=== PATIENT | male | born 1995 | race Caucasian/White ===

== ENCOUNTER 2022-03-19 11:37 | Inpatient (IN) | payer OTHER ==
[~2022-03-19] VITALS: Ht 177.8 cm; Wt 81.2 kg
[2022-03-19 15:50] VITALS: BP 119/66
[2022-03-19 16:45] VITALS: BP 119/66
[2022-03-19] MEDS: IBUPROFEN 600 MG TABLET PO SCH (18:00)
[2022-03-19] MEDS: OxyCODONE HCL 10 MG IR TABLET PO PRN (19:19)
[2022-03-19 21:00] VITALS: BP 118/66
[2022-03-19] MEDS: SENNA 187 MG TABLET PO SCH (21:00)
[2022-03-19] MEDS: DOCUSATE SODIUM 100 MG CAPSULE PO SCH (21:00)
[2022-03-19] MEDS: MELATONIN 5 MG TABLET PO PRN (21:14)
[2022-03-19] MEDS: ENOXAPARIN SODIUM 30 MG/0.3 ML PF SYRINGE SQ SCH (21:14)
[2022-03-19] MEDS: ETHYL ALCOHOL 62% ANTISEPTIC NASAL SANITIZER 0.6 ML AMPUL NASAL SCH (22:16)
[2022-03-20] MEDS: IBUPROFEN 600 MG TABLET PO SCH ×5 (00:12→23:51)
[2022-03-20 07:05] LABS: BASOPHILS % (AUTO) 0.3 % (0.0-2.0); EOSINOPHILS % (AUTO) 2.7 % (1.0-6.0); HEMATOCRIT 22.3 % (41-53); HEMOGLOBIN 7.7 g/dL (13.5-17.5); LYMPHOCYTES # (AUTO) 1.7 K/uL (1.0-4.8); LYMPHOCYTES % (AUTO) 18.7 % (22.0-44.0); MEAN CORPUSCULAR HEMOGLOBIN 29.8 pg (26.0-34.0); MEAN CORPUSCULAR HGB CONC 34.5 G/dL (31.0-37.0); MEAN CORPUSCULAR VOLUME 86 fL (80-100); MONOCYTES # (AUTO) 0.9 K/uL (0.1-1.0); NEUTROPHILS # (AUTO) 6.3 K/uL (1.8-7.7); NEUTROPHILS % (AUTO) 68.3 % (40.0-70.0); PLATELET COUNT (AUTO) 394 K/uL (150-450); RED BLOOD CELL COUNT(AUTO) 2.58 MIL/uL (4.50-5.90); RED CELL DISTRIBUTION WIDTH 14.7 % (11.5-14.5)
[2022-03-20 07:22] LABS: ALANINE AMINOTRANSFERASE 62 U/L (12-78); ALBUMIN 2.2 g/dL (3.4-5.0); ALKALINE PHOSPHATASE 80 U/L (46-116); ANION GAP 5 mmol/L (8-16); ASPARTATE AMINOTRANSFERASE 37 U/L (15-37); CARBON DIOXIDE 29 mmol/L (22-29); CHLORIDE 102 mmol/L (98-107); GLUCOSE,RANDOM 96 mg/dL (70-110); POTASSIUM 4.2 mmol/L (3.5-5.1); SODIUM SERUM 136 mmol/L (136-145); TOTAL PROTEIN, SERUM 6.1 g/dL (6.4-8.2); UREA NITROGEN, BLOOD 16 mg/dL (7-18)
[2022-03-20 07:23] LABS: GLOMERULAR FILTR. RATE CALC > 60 mL/min (>60)
[2022-03-20] MEDS: ENOXAPARIN SODIUM 30 MG/0.3 ML PF SYRINGE SQ SCH ×2 (08:31→20:24)
[2022-03-20 08:32] VITALS: BP 112/76
[2022-03-20] MEDS: OxyCODONE HCL 10 MG IR TABLET PO PRN ×2 (08:32→16:08)
[2022-03-20] MEDS: ETHYL ALCOHOL 62% ANTISEPTIC NASAL SANITIZER 0.6 ML AMPUL NASAL SCH ×2 (08:32→21:20)
[2022-03-20] MEDS: DOCUSATE SODIUM 100 MG CAPSULE PO SCH ×2 (08:35→21:00)
[2022-03-20] MEDS: MELATONIN 5 MG TABLET PO PRN (20:25)
[2022-03-20] MEDS: SENNA 187 MG TABLET PO SCH (21:00)
[2022-03-20 21:08] VITALS: BP 105/56
[2022-03-21] MEDS: IBUPROFEN 600 MG TABLET PO SCH ×3 (06:08→17:16)
[2022-03-21 06:54] LABS: BASOPHILS % (AUTO) 0.3 % (0.0-2.0); EOSINOPHILS % (AUTO) 3.4 % (1.0-6.0); HEMATOCRIT 23.4 % (41-53); HEMOGLOBIN 7.9 g/dL (13.5-17.5); LYMPHOCYTES # (AUTO) 1.7 K/uL (1.0-4.8); LYMPHOCYTES % (AUTO) 18.5 % (22.0-44.0); MEAN CORPUSCULAR HEMOGLOBIN 29.2 pg (26.0-34.0); MEAN CORPUSCULAR HGB CONC 33.7 G/dL (31.0-37.0); MEAN CORPUSCULAR VOLUME 87 fL (80-100); MONOCYTES # (AUTO) 0.9 K/uL (0.1-1.0); MONOCYTES % (AUTO) 10.1 % (2.0-9.0); NEUTROPHILS # (AUTO) 6.2 K/uL (1.8-7.7); NEUTROPHILS % (AUTO) 67.7 % (40.0-70.0); PLATELET COUNT (AUTO) 486 K/uL (150-450); RED CELL DISTRIBUTION WIDTH 14.4 % (11.5-14.5)
[2022-03-21 08:30] VITALS: BP 117/60
[2022-03-21] MEDS: OxyCODONE HCL 5 MG IR TABLET PO PRN (10:00)
[2022-03-21] MEDS: ENOXAPARIN SODIUM 30 MG/0.3 ML PF SYRINGE SQ SCH ×2 (10:00→20:48)
[2022-03-21] MEDS: DOCUSATE SODIUM 100 MG CAPSULE PO SCH ×2 (10:00→20:49)
[2022-03-21] MEDS: ETHYL ALCOHOL 62% ANTISEPTIC NASAL SANITIZER 0.6 ML AMPUL NASAL SCH ×2 (10:00→20:48)
[2022-03-21] MEDS: OxyCODONE HCL 10 MG IR TABLET PO PRN (15:20)
[2022-03-21] MEDS ORDERED: SODIUM CL IRRIG SOLN BOTTLE 250 ML IRRIG ONE (17:57)
[2022-03-21] MEDS: MELATONIN 5 MG TABLET PO PRN (20:48)
[2022-03-21] MEDS: SENNA 187 MG TABLET PO SCH (20:49)
[2022-03-21 23:13] VITALS: BP 125/69
[2022-03-22] MEDS: IBUPROFEN 600 MG TABLET PO SCH ×4 (00:07→17:29)
[2022-03-22 07:35] VITALS: BP 104/47
[2022-03-22] MEDS: DOCUSATE SODIUM 100 MG CAPSULE PO SCH (08:33)
[2022-03-22] MEDS: ETHYL ALCOHOL 62% ANTISEPTIC NASAL SANITIZER 0.6 ML AMPUL NASAL SCH ×2 (08:33→20:25)
[2022-03-22] MEDS: ENOXAPARIN SODIUM 30 MG/0.3 ML PF SYRINGE SQ SCH ×2 (08:33→20:26)
[2022-03-22] MEDS: OxyCODONE HCL 10 MG IR TABLET PO PRN ×2 (08:34→13:30)
[2022-03-22] MEDS: DOCUSATE SODIUM 250 MG CAPSULE PO SCH (20:26)
[2022-03-22] MEDS: SENNA 187 MG TABLET PO SCH (20:26)
[2022-03-22 20:33] VITALS: BP 129/72
[2022-03-22] MEDS: OxyCODONE HCL 5 MG IR TABLET PO PRN (22:06)
[2022-03-22] MEDS: MELATONIN 5 MG TABLET PO PRN (22:06)
[2022-03-23] MEDS: IBUPROFEN 600 MG TABLET PO SCH ×4 (06:01→18:18)
[2022-03-23 07:35] VITALS: BP 111/50
[2022-03-23] MEDS: DOCUSATE SODIUM 250 MG CAPSULE PO SCH ×2 (08:15→20:55)
[2022-03-23] MEDS: ENOXAPARIN SODIUM 30 MG/0.3 ML PF SYRINGE SQ SCH ×2 (08:15→20:56)
[2022-03-23] MEDS: ETHYL ALCOHOL 62% ANTISEPTIC NASAL SANITIZER 0.6 ML AMPUL NASAL SCH ×2 (08:15→20:55)
[2022-03-23] MEDS: MULTIVITAMINS WITH MINERALS, THERAPEUTIC TABLET PO SCH (08:15)
[2022-03-23] MEDS: OxyCODONE HCL 10 MG IR TABLET PO PRN ×2 (08:16→13:45)
[2022-03-23] MEDS: ACETAMINOPHEN 325 MG TABLET PO PRN (16:26)
[2022-03-23 20:00] VITALS: BP 110/54
[2022-03-23] MEDS: SENNA 187 MG TABLET PO SCH (21:00)
[2022-03-23] MEDS: MELATONIN 5 MG TABLET PO PRN (23:57)
[2022-03-24] MEDS: IBUPROFEN 600 MG TABLET PO SCH ×4 (06:17→18:42)
[2022-03-24] MEDS: OxyCODONE HCL 10 MG IR TABLET PO PRN ×2 (07:14→16:44)
[2022-03-24] MEDS: ETHYL ALCOHOL 62% ANTISEPTIC NASAL SANITIZER 0.6 ML AMPUL NASAL SCH ×2 (09:06→20:37)
[2022-03-24] MEDS: MULTIVITAMINS WITH MINERALS, THERAPEUTIC TABLET PO SCH (09:08)
[2022-03-24] MEDS: DOCUSATE SODIUM 250 MG CAPSULE PO SCH ×2 (09:08→20:37)
[2022-03-24] MEDS: ENOXAPARIN SODIUM 30 MG/0.3 ML PF SYRINGE SQ SCH ×2 (09:09→20:38)
[2022-03-24] MEDS: ACETAMINOPHEN 325 MG TABLET PO PRN (09:33)
[2022-03-24 20:30] VITALS: BP 125/56
[2022-03-24] MEDS: SENNA 187 MG TABLET PO SCH (20:37)
[2022-03-24] MEDS: MELATONIN 5 MG TABLET PO PRN (20:37)
[2022-03-24] MEDS: OxyCODONE HCL 5 MG IR TABLET PO PRN (20:38)
[2022-03-25 08:01] VITALS: BP 99/63
[2022-03-25] MEDS: ENOXAPARIN SODIUM 30 MG/0.3 ML PF SYRINGE SQ SCH ×2 (08:42→20:09)
[2022-03-25] MEDS: MULTIVITAMINS WITH MINERALS, THERAPEUTIC TABLET PO SCH (08:43)
[2022-03-25] MEDS: ETHYL ALCOHOL 62% ANTISEPTIC NASAL SANITIZER 0.6 ML AMPUL NASAL SCH ×2 (08:43→20:09)
[2022-03-25] MEDS: DOCUSATE SODIUM 250 MG CAPSULE PO SCH ×2 (08:43→20:08)
[2022-03-25] MEDS: OxyCODONE HCL 10 MG IR TABLET PO PRN ×2 (14:25→22:07)
[2022-03-25] MEDS: POLYETHYLENE GLYCOL 3350 17 GM PACKET PO SCH (14:25)
[2022-03-25 16:30] VITALS: BP 126/69
[2022-03-25] MEDS: ACETAMINOPHEN 325 MG TABLET PO PRN (16:47)
[2022-03-25 17:00] LABS: BASOPHILS % (AUTO) 0.5 % (0.0-2.0); EOSINOPHILS % (AUTO) 0.4 % (1.0-6.0); HEMATOCRIT 28.9 % (41-53); HEMOGLOBIN 9.6 g/dL (13.5-17.5); LYMPHOCYTES # (AUTO) 0.8 K/uL (1.0-4.8); LYMPHOCYTES % (AUTO) 14.4 % (22.0-44.0); MEAN CORPUSCULAR HEMOGLOBIN 28.7 pg (26.0-34.0); MEAN CORPUSCULAR HGB CONC 33.2 G/dL (31.0-37.0); MEAN CORPUSCULAR VOLUME 86 fL (80-100); MONOCYTES % (AUTO) 0.6 % (2.0-9.0); NEUTROPHILS # (AUTO) 4.7 K/uL (1.8-7.7); NEUTROPHILS % (AUTO) 84.1 % (40.0-70.0); PLATELET COUNT (AUTO) 707 K/uL (150-450); RED BLOOD CELL COUNT(AUTO) 3.34 MIL/uL (4.50-5.90); RED CELL DISTRIBUTION WIDTH 15.7 % (11.5-14.5)
[2022-03-25 17:11] LABS: ANION GAP 7 mmol/L (8-16); CALCIUM, TOTAL 9.5 mg/dL (8.8-10.5); CARBON DIOXIDE 30 mmol/L (22-29); CHLORIDE 99 mmol/L (98-107); CREATININE 0.81 mg/dL (0.60-1.30); GLOMERULAR FILTR. RATE CALC > 60 mL/min (>60); GLUCOSE,RANDOM 84 mg/dL (70-110); POTASSIUM 4.2 mmol/L (3.5-5.1); SODIUM SERUM 136 mmol/L (136-145); UREA NITROGEN, BLOOD 18 mg/dL (7-18)
[2022-03-25 20:00] VITALS: BP 95/60
[2022-03-25] MEDS: SENNA 187 MG TABLET PO SCH (20:08)
[2022-03-25 20:17] LABS: APPEARANCE,URINE CLEAR (CLEAR); BILIRUBIN,URINE NEGATIVE (NEGATIVE); GLUCOSE, URINE (UA) NEGATIVE (NEGATIVE); KETONES,URINE NEGATIVE (NEGATIVE); LEUKOCYTE ESTERASE ,URINE NEGATIVE (NEGATIVE); NITRATE,URINE NEGATIVE (NEGATIVE); OCCULT BLOOD,URINE NEGATIVE (NEGATIVE); PH,URINE 5.5 (5.0-8.0); PROTEIN,URINE NEGATIVE (NEGATIVE); SPECIFIC GRAVITIY, URINE 1.006 (1.003-1.030); UROBILINOGEN,URINE <=1.0 mg/dL (<=1.0)
[2022-03-25 20:20] LABS: BACTERIA,URINE None Seen /HPF (None Seen); RBC,URINE 0-2 /HPF (0-2); SQUAMOUS EPITHELIAL CELL,UR Rare /LPF (None Seen); WBC,URINE None Seen /HPF (0-5)
[2022-03-25] MEDS: MELATONIN 5 MG TABLET PO PRN (22:06)
[2022-03-26] MEDS: POLYETHYLENE GLYCOL 3350 17 GM PACKET PO SCH (08:40)
[2022-03-26] MEDS: DOCUSATE SODIUM 250 MG CAPSULE PO SCH ×2 (08:41→20:17)
[2022-03-26] MEDS: ETHYL ALCOHOL 62% ANTISEPTIC NASAL SANITIZER 0.6 ML AMPUL NASAL SCH ×2 (08:41→20:17)
[2022-03-26] MEDS: MULTIVITAMINS WITH MINERALS, THERAPEUTIC TABLET PO SCH (08:41)
[2022-03-26] MEDS: ENOXAPARIN SODIUM 30 MG/0.3 ML PF SYRINGE SQ SCH ×2 (08:41→20:17)
[2022-03-26 08:48] VITALS: BP 112/58
[2022-03-26] MEDS: ACETAMINOPHEN 325 MG TABLET PO PRN (08:48)
[2022-03-26] MEDS: OxyCODONE HCL 10 MG IR TABLET PO PRN ×2 (09:41→18:05)
[2022-03-26 20:00] VITALS: BP 106/54
[2022-03-26] MEDS: SENNA 187 MG TABLET PO SCH (20:17)
[2022-03-26] MEDS: MELATONIN 5 MG TABLET PO PRN (20:18)
[2022-03-27 05:10] VITALS: BP 111/64
[2022-03-27] MEDS: OxyCODONE HCL 10 MG IR TABLET PO PRN ×4 (05:10→20:15)
[2022-03-27 08:33] VITALS: BP 111/77
[2022-03-27] MEDS: ACETAMINOPHEN 325 MG TABLET PO PRN (08:33)
[2022-03-27] MEDS: ENOXAPARIN SODIUM 30 MG/0.3 ML PF SYRINGE SQ SCH ×2 (08:38→20:20)
[2022-03-27] MEDS: MULTIVITAMINS WITH MINERALS, THERAPEUTIC TABLET PO SCH (08:39)
[2022-03-27] MEDS: ETHYL ALCOHOL 62% ANTISEPTIC NASAL SANITIZER 0.6 ML AMPUL NASAL SCH ×2 (08:39→20:15)
[2022-03-27] MEDS: POLYETHYLENE GLYCOL 3350 17 GM PACKET PO SCH (08:39)
[2022-03-27] MEDS: DOCUSATE SODIUM 250 MG CAPSULE PO SCH ×2 (08:39→21:00)
[2022-03-27] MEDS: MELATONIN 5 MG TABLET PO PRN (20:14)
[2022-03-27 21:00] VITALS: BP 106/61
[2022-03-27] MEDS: SENNA 187 MG TABLET PO SCH (21:00)
[2022-03-28] MEDS: ACETAMINOPHEN 325 MG TABLET PO PRN ×2 (04:19→20:33)
[2022-03-28 08:05] VITALS: BP 108/63
[2022-03-28] MEDS: ETHYL ALCOHOL 62% ANTISEPTIC NASAL SANITIZER 0.6 ML AMPUL NASAL SCH ×2 (09:41→20:18)
[2022-03-28] MEDS: OxyCODONE HCL 10 MG IR TABLET PO PRN (09:43)
[2022-03-28] MEDS: ENOXAPARIN SODIUM 30 MG/0.3 ML PF SYRINGE SQ SCH ×2 (09:43→20:19)
[2022-03-28] MEDS: DOCUSATE SODIUM 250 MG CAPSULE PO SCH ×2 (09:43→20:19)
[2022-03-28] MEDS: POLYETHYLENE GLYCOL 3350 17 GM PACKET PO SCH (09:43)
[2022-03-28] MEDS: MULTIVITAMINS WITH MINERALS, THERAPEUTIC TABLET PO SCH (09:43)
[2022-03-28 10:50] VITALS: BP 117/71
[2022-03-28] MEDS: OxyCODONE HCL 5 MG IR TABLET PO PRN (17:04)
[2022-03-28 20:15] VITALS: BP 114/62
[2022-03-28] MEDS: SENNA 187 MG TABLET PO SCH (20:19)
[2022-03-28] MEDS: MELATONIN 5 MG TABLET PO PRN (20:33)
[2022-03-29 08:13] VITALS: BP 108/60
[2022-03-29] MEDS: OxyCODONE HCL 5 MG IR TABLET PO PRN ×3 (08:13→17:30)
[2022-03-29] MEDS: POLYETHYLENE GLYCOL 3350 17 GM PACKET PO SCH (09:00)
[2022-03-29] MEDS: DOCUSATE SODIUM 250 MG CAPSULE PO SCH ×2 (09:03→20:49)
[2022-03-29] MEDS: MULTIVITAMINS WITH MINERALS, THERAPEUTIC TABLET PO SCH (09:03)
[2022-03-29] MEDS: ETHYL ALCOHOL 62% ANTISEPTIC NASAL SANITIZER 0.6 ML AMPUL NASAL SCH ×2 (09:03→20:49)
[2022-03-29] MEDS: ENOXAPARIN SODIUM 30 MG/0.3 ML PF SYRINGE SQ SCH ×2 (09:03→20:50)
[2022-03-29] MEDS: SENNA 187 MG TABLET PO SCH (20:50)
[2022-03-29] MEDS: MELATONIN 5 MG TABLET PO PRN (20:50)
[2022-03-29 21:00] VITALS: BP 115/67
[2022-03-30] MEDS: OxyCODONE HCL 5 MG IR TABLET PO PRN ×2 (04:08→09:17)
[2022-03-30] MEDS: DOCUSATE SODIUM 250 MG CAPSULE PO SCH (07:34)
[2022-03-30] MEDS: ENOXAPARIN SODIUM 30 MG/0.3 ML PF SYRINGE SQ SCH (07:34)
[2022-03-30] MEDS: MULTIVITAMINS WITH MINERALS, THERAPEUTIC TABLET PO SCH (07:34)
[2022-03-30] MEDS: POLYETHYLENE GLYCOL 3350 17 GM PACKET PO SCH (07:34)
[2022-03-30] MEDS: ETHYL ALCOHOL 62% ANTISEPTIC NASAL SANITIZER 0.6 ML AMPUL NASAL SCH (07:34)
[2022-03-30 08:52] VITALS: BP 102/72
[2022-03-30] MEDS ORDERED: DOCU-350 PO (09:47)
[2022-03-30] MEDS ORDERED: POLY17PO47 PO (09:47)
[2022-03-30] MEDS ORDERED: OXYC10TA92 PO (09:47)
[2022-03-30] MEDS ORDERED: SENN-187 PO (09:47)
[2022-03-30] MEDS ORDERED: ACET325T51 PO (09:47)
[2022-03-30] MEDS ORDERED: MULT-1239 PO (09:47)
[2022-03-30] MEDS ORDERED: ASPI325T87 PO (09:47)
[2022-03-30] MEDS: ACETAMINOPHEN 325 MG TABLET PO PRN (13:56)
== END 2022-03-30 14:20 | disposition home or self-care (01) | DRG 340 ==
LOC: 2WR 15:05
PROVIDERS: ADMIT Physical Medicine & Rehabilitation; ATTEND Physical Medicine & Rehabilitation
DX: S72.92XA Unspecified fracture of left femur, initial encounter for closed fracture (principal); S32.10XA Unspecified fracture of sacrum, initial encounter for closed fracture; E46 Unspecified protein-calorie malnutrition; S72.91XA Unspecified fracture of right femur, initial encounter for closed fracture; D64.9 Anemia, unspecified; K59.03 Drug induced constipation; T40.0X5A Adverse effect of opium, initial encounter; Z79.01 Long term (current) use of anticoagulants; V89.2XXA Person injured in unspecified motor-vehicle accident, traffic, initial encounter; Y93.89 Activity, other specified; Y92.89 Other specified places as the place of occurrence of the external cause; Y99.8 Other external cause status; Z68.25 Body mass index [BMI] 25.0-25.9, adult
CPT/HCPCS: 76870; 80048; 80053; 81001; 85025; 87081; 93970; 97110; 97116; 97150; 97163; 97166; 97530; 97535; 99366; J1650; Q9967